=== PATIENT | male | born 1990 | race Caucasian/White ===

== ENCOUNTER 2019-03-13 17:19 | Emergency (ER) | payer MEDICAID ==
--- NOTE | 2019-03-13 17:51 | EDM.PDOCBH ---
<Imelda Garza Vee - Last Filed: 03/13/19 22:24> ED HPI GENERAL MEDICAL PROBLEM - General Chief Complaint: Behavioral/Psych Stated Complaint: MENTAL EVAL Time Seen by Provider: 03/13/19 17:34 Source of Information: Reports: Patient, RN Notes Reviewed History Limitations: Reports: No Limitations - History of Present Illness INITIAL COMMENTS - FREE TEXT/NARRATIVE: Patient is a 28-year-old male who presents to the ED for the evaluation of suicidal ideations. The patient states he has been feeling down for the past 3 days, his recent girlfriend just broke up with him. He notes that he moved up here for work approximately one month ago. He further notes that he is from [facility]. And that his own family doesn't talk to him much at all either. She states that his son in [place] is moving with the biological mother to [place] so he won't even have a chance to interact with his son. He states that he does not see a counselor or talk to anyone about his feelings. He denies hearing things that aren't there or seeing things that aren't there. He notes a history of bipolar and anxiety depression, but no schizophrenia at this time. He states that he does smoke weed, and that his last intake was a couple days ago. He states that if he were to take his life today, he has access to razor blades at his house, but he would prefer to hang himself. He has not ingested any pills or toxins that would be harmful to him at this time. He had been taking antidepressants, but stopped taking these one month ago as he ran out. He cannot remember the name of these medications. - Related Data Allergies Allergy/AdvReac Type Severity Reaction Status Date / Time No Known Allergies Allergy Verified 03/13/19 17:28 Home Meds: Home Meds . [No Known Home Meds] 03/13/19 [History] Past Medical History Psychiatric History: Reports: Anxiety, Depression Social & Family History - Family History Family Medical History: Noncontributory - Tobacco Use Smoking Status *Q: Current Every Day Smoker Years of Tobacco use: 12 Packs/Tins Daily: 0.5 Tobacco Use Comment: pt used to smoke approx. 0.5 ppd but changed to vaping approx 2 weeks ago - Caffeine Use Caffeine Use: Reports: Coffee, Energy Drinks, Soda, Tea - Recreational Drug Use Recreational Drug Use: Yes Drug Use in Last 12 Months: Yes Recreational Drug Type: Reports: Marijuana/Hashish Recreational Drug Use Frequency: Daily ED ROS GENERAL - Review of Systems Review Of Systems: See Below Constitutional: Reports: No Symptoms HEENT: Reports: No Symptoms Respiratory: Reports: No Symptoms Cardiovascular: Reports: No Symptoms Endocrine: Reports: No Symptoms GI/Abdominal: Reports: No Symptoms : Reports: No Symptoms Musculoskeletal: Reports: No Symptoms Skin: Reports: No Symptoms Neurological: Reports: No Symptoms Psychiatric: Reports: Anxiety, Depression, Suicidal Ideation. Denies: Hallucinations Hematologic/Lymphatic: Reports: No Symptoms Immunologic: Reports: No Symptoms ED EXAM, BEHAVIORAL HEALTH - Physical Exam Exam: See Below Exam Limited By: No Limitations General Appearance: Alert, WD/WN, No Apparent Distress Eye Exam: Bilateral Eye: EOMI, Normal Inspection, PERRL Throat/Mouth: Normal Inspection, Normal Lips, Normal Teeth, Normal Gums, Normal Oropharynx, Normal Voice, No Airway Compromise Head: Atraumatic, Normocephalic Respiratory/Chest: No Respiratory Distress, Lungs Clear, Normal Breath Sounds, No Accessory Muscle Use, Chest Non-Tender Cardiovascular: Normal Peripheral Pulses, Regular Rate, Rhythm, No Murmur GI/Abdominal: Normal Bowel Sounds, Soft, Non-Tender, No Distention, No Mass Extremities: Normal Inspection, Normal Capillary Refill Neurological: Alert, Normal Mood/Affect, Normal Cognition, Normal Reflexes, No Motor/Sensory Deficits, Oriented x 3 Psychiatric: Alert, Oriented, Depressed Mood, Tearful, Poor Eye Contact, Withdrawn, Suicidal Plan (would use razor blades to slash wrists, or hang himself), Suicidal Thoughts. No: Restorationism Delusions, Auditory Hallucinations, Visual Hallucinations, Grandiose Thoughts, Paranoid Thoughts, Threatening Behavior Skin Exam: Warm, Dry, Intact, Normal color, No rash EKG INTERPRETATION EKG Date: 03/13/19 Time: 17:51 Rhythm: NSR Rate (Beats/Min): 64 [place]: Normal P-Wave: Present QRS: Normal ST-T: Normal QT: Normal EKG Interpretation Comments: Reviewed by myself and Dr. Baker. COURSE, BEHAVIORAL HEALTH COMP - Course Vital Signs: Last Vital Signs Temp 37.6 C 03/13/19 17:25 Pulse 90 03/13/19 17:25 Resp 18 03/13/19 17:25 BP 144/111 H 03/13/19 17:25 Pulse Ox 93 L 03/13/19 17:25 Orders, Labs, Meds: Active Orders 24 hr Category Date Time Status EKG Documentation Completion [RC] STAT Care 03/13/19 17:37 Active Laboratory Tests 03/13/19 03/13/19 03/13/19 Range/Units 18:01 18:01 18:01 WBC 10.42 H (4.23-9.07) K/mm3 RBC 5.11 (4.63-6.08) M/mm3 Hgb 15.4 (13.7-17.5) gm/L Hct 46.9 (40.1-51.0) % MCV 91.8 (79.0-92.2) fl MCH 30.1 (25.7-32.2) pg MCHC 32.8 (32.2-35.5) g/dl RDW Std Deviation 44.7 H (35.1-43.9) fL Plt Count 251 (163-337) K/mm3 MPV 9.8 (9.4-12.3) fl Neutrophils % (Manual) 76 H (40-60) % Band Neutrophils % 0 (0-10) % Lymphocytes % (Manual) 21 (20-40) % Atypical Lymphs % 0 % Monocytes % (Manual) 2 (2-10) % Eosinophils % (Manual) 0 L (0.8-7.0) % Basophils % (Manual) 1 (0.2-1.2) Platelet Estimate Adequate Plt Morphology Comment Normal RBC Morph Comment Normal Sodium 142 (136-145) mEq/L Potassium 4.1 (3.5-5.1) mEq/L Chloride 105 (98-107) mEq/L Carbon Dioxide 27 (21-32) mEq/L Anion Gap 14.1 (5-15) BUN 10 (7-18) mg/dL Creatinine 0.9 (0.7-1.3) mg/dL Est Cr Clr Drug Dosing 112.24 mL/min Estimated GFR (MDRD) > 60 (>60) mL/min BUN/Creatinine Ratio 11.1 L (14-18) Glucose 93 (74-106) mg/dL Calcium 9.5 (8.5-10.1) mg/dL Total Bilirubin 0.4 (0.2-1.0) mg/dL AST 23 (15-37) U/L ALT 30 (16-63) U/L Alkaline Phosphatase 57 (46-116) U/L Total Protein 7.9 (6.4-8.2) g/dl Albumin 4.6 (3.4-5.0) g/dl Globulin 3.3 gm/dL Albumin/Globulin Ratio 1.4 (1-2) TSH 3rd Generation 4.804 H (0.358-3.74) uIU/mL Salicylates 3.0 (2.8-20) mg/dL Urine Opiates Screen (GIDYFZ=764) Ur Buprenorphine Scrn (CUTOFF=10) Ur Oxycodone Screen (ZLD4ZF=646) Urine Methadone Screen (FIS4PP=815) Ur Propoxyphene Screen (MVZNUK=523) Acetaminophen 0 L (10-30) ug/mL Ur Barbiturates Screen (ETYMCK=356) Ur Tricyclics Screen (BNZVMU=777) Ur Phencyclidine Scrn (CUTOFF=25) Ur Amphetamine Screen (NFJAAH=275) U Methamphetamines Scrn (JPKKQL=749) U Benzodiazepines Scrn (IXNDQM=495) U Cocaine Metab Screen (QEVSIV=258) U Marijuana (THC) Screen (CUTOFF=50) Ethyl Alcohol 0.00 (0.00) gm% C trachomatis DNA (PCR) N gonorrhoeae DNA (PCR) 03/13/19 03/13/19 Range/Units 18:05 18:05 WBC (4.23-9.07) K/mm3 RBC (4.63-6.08) M/mm3 Hgb (13.7-17.5) gm/L Hct (40.1-51.0) % MCV (79.0-92.2) fl MCH (25.7-32.2) pg MCHC (32.2-35.5) g/dl RDW Std Deviation (35.1-43.9) fL Plt Count (163-337) K/mm3 MPV (9.4-12.3) fl Neutrophils % (Manual) (40-60) % Band Neutrophils % (0-10) % Lymphocytes % (Manual) (20-40) % Atypical Lymphs % % Monocytes % (Manual) (2-10) % Eosinophils % (Manual) (0.8-7.0) % Basophils % (Manual) (0.2-1.2) Platelet Estimate Plt Morphology Comment RBC Morph Comment Sodium (136-145) mEq/L Potassium (3.5-5.1) mEq/L Chloride (98-107) mEq/L Carbon Dioxide (21-32) mEq/L Anion Gap (5-15) BUN (7-18) mg/dL Creatinine (0.7-1.3) mg/dL Est Cr Clr Drug Dosing mL/min Estimated GFR (MDRD) (>60) mL/min BUN/Creatinine Ratio (14-18) Glucose (74-106) mg/dL Calcium (8.5-10.1) mg/dL Total Bilirubin (0.2-1.0) mg/dL AST (15-37) U/L ALT (16-63) U/L Alkaline Phosphatase (46-116) U/L Total Protein (6.4-8.2) g/dl Albumin (3.4-5.0) g/dl Globulin gm/dL Albumin/Globulin Ratio (1-2) TSH 3rd Generation (0.358-3.74) uIU/mL Salicylates (2.8-20) mg/dL Urine Opiates Screen Negative (DLEDTZ=347) Ur Buprenorphine Scrn Negative (CUTOFF=10) Ur Oxycodone Screen Negative (RTV4KM=588) Urine Methadone Screen Negative (JTL3JN=999) Ur Propoxyphene Screen Negative (LKBBMY=945) Acetaminophen (10-30) ug/mL Ur Barbiturates Screen Negative (PIRZWW=813) Ur Tricyclics Screen Negative (GEDCKA=582) Ur Phencyclidine Scrn Negative (CUTOFF=25) Ur Amphetamine Screen Negative (ABDPOU=187) U Methamphetamines Scrn Negative (XFLJQD=876) U Benzodiazepines Scrn Negative (FQYBJO=638) U Cocaine Metab Screen Negative (GQRXFJ=912) U Marijuana (THC) Screen Presumptive positive H (CUTOFF=50) Ethyl Alcohol (0.00) gm% C trachomatis DNA (PCR) Not detected N gonorrhoeae DNA (PCR) Not detected Medications Discontinued Medications Generic Name Dose Route Start Last Admin Trade Name Freq PRN Reason Stop Dose Admin Ibuprofen 600 mg 03/13/19 22:33 03/13/19 22:38 Motrin PO 03/13/19 22:34 600 mg ONETIME ONE Administration Lorazepam 1 mg 03/13/19 22:24 06/20/19 22:38 Ativan PO 03/13/19 22:25 1 mg ONETIME ONE Administration Nicotine 21 mg 03/13/19 19:16 03/13/19 19:34 Habitrol TRDERM 03/13/19 19:17 21 mg ONETIME ONE Administration Discharge vs Psych Eval/Treatment:: 03/13/19 17:53 Patient presents to the ED for the evaluation of suicidal ideations. I have ordered labs for psych clearance, and I do believe this gentleman would benefit from psychiatric hospitalization for suicidal ideations at this time. We'll try to find him placement. 03/13/19 19:42 Labs are essentially within normal limits. He does have a high thyroid which would suggest hypothyroidism at this time at 4.8. This should not bother any sort of management that is needed for his psychiatric evaluation. He was positive for marijuana, however he states that he does smoke marijuana at this time. I will call [facility] to see if I can secure a bed for him at this time. 03/13/19 19:49 [facility] was called, and they state that they do have multiple beds open, however since the patient cannot be transported until travel accommodations rater hours by the [facility], they're not in the practice of holding beds at this time, however they feel that he would be a candidate for psychiatric admission. They recommend calling back at 2 or 3 in the morning to call for placement. I will relay this to the doctor on shift, Dr. Gagnon. 03/13/19 22:24 Patient was getting extremely anxious and wanting to leave the facility. I do not feel it is in his best interest to leave without psychiatric care. I did talk him into staying. He will be provided 1mg PO ativan for anxiety and to help him get some sleep so that he may be transferred to [facility] the AM. [facility] will be here at 5:30 AM to transport to [place]. Departure - Departure Time of Disposition: 20:16 Disposition: DC/Tfer to Psych Hosp/Unit 65 Condition: Fair Clinical Impression: Suicidal ideation - Discharge Information *PRESCRIPTION DRUG MONITORING PROGRAM REVIEWED*: No *COPY OF PRESCRIPTION DRUG MONITORING REPORT IN PATIENT SACHIN: No Referrals: PCP,None [Primary Care Provider] - Forms: ED Department Discharge <Avery Gagnon - Last Filed: 03/14/19 04:07> COURSE, BEHAVIORAL HEALTH COMP - Course Discharge vs Psych Eval/Treatment:: 03/14/19 04:07 I did discuss patient's case with Dr. Munoz, psychiatrist, at [facility] who agrees on this psychiatric admission and will accept the patient.
[2019-03-13 18:56] LABS: ACETAMINOPHEN 0 ug/mL (10-30)
[2019-03-13] MEDS ORDERED: Nicotine 21 MG/24 Hr Patch TRDERM ONE (19:16)
[2019-03-13 20:40] LABS: C. TRACHOMATIS BY PCR NOT DETECTED; N. GONORRHOEAE BY PCR NOT DETECTED
[2019-03-13] MEDS ORDERED: LORazepam 1 MG Tab PO ONE (22:24)
[2019-03-13] MEDS ORDERED: Ibuprofen 600 MG Tab PO ONE (22:33)
== END 2019-03-14 06:15 ==
LOC: JD.ED 17:19
DX: R45.851 Suicidal ideations (principal); F17.210 Nicotine dependence, cigarettes, uncomplicated
CPT/HCPCS: 36415; 80053; 80306; 84443; 85007; 85027; 87491; 87591; 93005; 99285; A9270; G0480; 93010; 99283